=== PATIENT | female | born 1960 | race Caucasian/White ===

== ENCOUNTER 2023-06-24 15:23 | Emergency (ER) | payer BC ==
[2023-06-24] MEDS ORDERED: Sodium Chloride 0.9% 10 ML Syringe FLUSH PRN (17:11)
[2023-06-24] MEDS ORDERED: Metoclopramide 10 MG/2 ML SDV IVPUSH ONE (17:11)
[2023-06-24] MEDS ORDERED: Ketorolac 15 MG/ML SDV IVPUSH ONE (17:11)
[2023-06-24] MEDS ORDERED: Sodium Chloride 0.9% 1,000 ML IV ONE (17:12)
[2023-06-24] MEDS ORDERED: diphenhydrAMINE 50 MG/ML SDV IVPUSH ONE (17:12)
[2023-06-24 17:22] LABS: HEMATOCRIT 38.4 % (34.3-46.0); HEMOGLOBIN 12.8 g/dL (11.2-15.5); MEAN CORPUSCULAR HEMOGLOBIN 29.7 pg (31.6-35.5); MEAN CORPUSCULAR HGB CONC 33.3 g/dL (31.6-35.5); MEAN CORPUSCULAR VOLUME 89.1 fL (81.4-99.0); RED BLOOD CELL COUNT 4.31 M/uL (3.77-5.24); WHITE BLOOD CELL COUNT,WBC 5.4 K/uL (3.2-11.0)
[2023-06-24 17:37] LABS: CALCIUM 9.4 mg/dL (8.5-10.1); CREATININE 0.7 mg/dL (0.6-1.0); EST CRCL DRUG DOSING (CG) 68.93 mL/min; POTASSIUM,K 4.1 mmol/L (3.6-5.2)
[2023-06-24 17:38] LABS: ANION GAP 11.1 mmol/L (5.0-14.0)
== END 2023-06-24 19:28 | disposition home or self-care (01) ==
LOC: JP.ED 15:23
DX: R51.9 Headache, unspecified (principal); Z88.8 Allergy status to other drugs, medicaments and biological substances; Z88.0 Allergy status to penicillin
CPT/HCPCS: 36415; 80048; 85027; 96361; 96374; 96375; 99283; 99284-25; J1200; J1885; J2765; J3490; J7030